=== PATIENT | female | born 1950 | race Caucasian/White ===

== ENCOUNTER 2016-04-03 17:46 | Inpatient (IN) | payer OTHER ==
[~2016-04-03] VITALS: Ht 152.4 cm; Wt 46.2 kg
[~2016-04-03 17:46] MED LIST: BISAC-EVAC10 MG RC; BONIVA150 MG PO; CALCIUM + D 601 EACH PO; CALCIUM 600 +1 EAC3 PO; CALMOSEPTINE O120 GM TP; CARBAMAZEPINE100 MG PO; CARBAMAZEPINE200 MG PO; COLACE10 MG/ML PO; COLACE100 MG PO; DAILY MULTIVIT1 EAC1 PO; DAILY VITAMIN1 EAC2 PO; ENSURE113 GM PO; FOSAMAX70 MG PO; K-DUR20 MEQ PO; LEVOFLOXACIN500 MG PO; MIRALAX17 GM PO; NITROFURAN25 MG/5 ML PO; REGLAN10 MG/10 M PO; SENNA8.6 M1 PO; SENNA8.6 MG PO; TEGRETOL100 MG PO; TEGRETOL200 MG PO; TYLENOL REGULA325 MG PO; Tegretol PO
[2016-04-03 19:27] LABS: CHLORIDE 114 mEq/L (99-109); POTASSIUM 3.8 mEq/L (3.7-5.4)
[2016-04-03 19:29] LABS: GLUCOSE 126 mg/dL (70-99)
[2016-04-03 19:31] LABS: ANION GAP 13 MEQ/L (2-14); TOTAL BILIRUBIN 0.6 mg/dL (0.0-1.0)
[2016-04-03 19:33] LABS: ALKALINE PHOSPHATASE 80 IU/L (3-129); GFR ESTIMATE (CALCULATED) 7 mL/min/
[2016-04-03 19:34] LABS: UREA NITROGEN (BUN) 92 mg/dL (9-23)
[2016-04-03 19:35] LABS: SODIUM 165 mEq/L (136-147)
[2016-04-03 19:39] LABS: MCH 33.7 PG (29.0-34.0); MCHC 31.2 G/DL (30.0-36.0); MCV 107.9 FL (83-99); MEAN PLAT.VOLUME 12.1 uM^3 (9.5-12.4); RBC DIS.WIDTH-CV 13.6 % (11.8-14.6); RBC DIS.WIDTH-SD 52.5 % (39-53); WHITE BLOOD COUNT 10.4 K/uL (4.1-10.2)
[2016-04-03 19:40] LABS: PLATELET COUNT 244 K/uL (156-360)
[2016-04-03 20:21] LABS: TROP-I INTERPRETATION NEGATIVE; TROPONIN-I 0.01 ng/mL (0.0-0.30)
[2016-04-03 20:55] LABS: BILIRUBIN SMALL; COLOR DK YELLOW ((YELLOW)); GLUCOSE (STRIP) NEGATIVE; KETONES NEGATIVE; LEUKOCYTES TRACE; NITRITE NEGATIVE; PH, URINE 5 (5-8); PROTEIN (STRIP) TRACE; SPECIFIC GRAVITY 1.015 (1.000-1.030); UROBILINOGEN 0.2 MG/DL (0.2-1.0)
[2016-04-03 20:56] LABS: ADD MIUA? YES; BLOOD LARGE
[2016-04-03 21:18] LABS: EPITHELIAL CELLS 4+; MUCUS NONE SEEN; RED BLOOD CELLS 0-5 /HPF (0-5); WHITE BLOOD CELLS 0-5 /HPF (0-5)
[2016-04-03 21:19] LABS: BACTERIA 2+; CASTS NONE SEEN /LPF; CRYSTALS NONE SEEN; UCUL ADDED? NO
[2016-04-04] VITALS (7 sets, daily range): BP systolic 99–130; BP diastolic 55–75
[2016-04-04 00:21] LABS: MAGNESIUM 4.6 mg/dL (1.3-2.7)
[2016-04-04 00:28] LABS: CREATINE KINASE 19 IU/L (1-294)
[2016-04-04 03:24] LABS: CHLORIDE 123 mEq/L (99-109)
[2016-04-04 03:25] LABS: POTASSIUM 3.4 mEq/L (3.7-5.4)
[2016-04-04 03:26] LABS: GLUCOSE 105 mg/dL (70-99); SODIUM 165 mEq/L (136-147)
[2016-04-04 03:28] LABS: ANION GAP 13 MEQ/L (2-14)
[2016-04-04 03:30] LABS: GFR ESTIMATE (CALCULATED) 9 mL/min/
[2016-04-04 03:31] LABS: UREA NITROGEN (BUN) 82 mg/dL (9-23)
[2016-04-04 05:34] LABS: URINE TOTAL PROTEIN 39 MG/DL (0-10)
[2016-04-04 06:28] LABS: HEMATOCRIT 33.8 % (36.0-46.0); MCH 32.4 PG (29.0-34.0); MCHC 30.5 G/DL (30.0-36.0); MCV 106.3 FL (83-99); MEAN PLAT.VOLUME 12.4 uM^3 (9.5-12.4); RBC DIS.WIDTH-CV 13.7 % (11.8-14.6); RBC DIS.WIDTH-SD 53.7 % (39-53); RED BLOOD COUNT 3.18 M/uL (3.80-5.20); WHITE BLOOD COUNT 8.7 K/uL (4.1-10.2)
[2016-04-04 06:36] LABS: PLATELET COUNT 169 K/uL (156-360)
[2016-04-04 06:58] LABS: ANION GAP 6 MEQ/L (2-14); CHLORIDE 124 MEQ/L (99-109); GFR ESTIMATE (CALCULATED) 9 mL/min/; GLUCOSE 119 mg/dL (70-99); POTASSIUM 3.8 MEQ/L (3.7-5.4); SAMPLE HEMOLYSIS CHECK 1; SAMPLE ICTERIC CHECK 0; SAMPLE LIPEMIA CHECK 0; UREA NITROGEN (BUN) 74 mg/dL (9-23)
[2016-04-04 07:05] LABS: SODIUM 161 MEQ/L (136-147)
[2016-04-04 07:58] LABS: INTACT PARATHYROID HORMONE 46 pg/mL (10-69)
[2016-04-04 17:12] LABS: ANION GAP 8 MEQ/L (2-14); CHLORIDE 116 MEQ/L (99-109); GFR ESTIMATE (CALCULATED) 9 mL/min/; GLUCOSE 131 mg/dL (70-99); POTASSIUM 3.3 MEQ/L (3.7-5.4); SAMPLE HEMOLYSIS CHECK 0; SAMPLE ICTERIC CHECK 0; SAMPLE LIPEMIA CHECK 0; SODIUM 156 MEQ/L (136-147); UREA NITROGEN (BUN) 71 mg/dL (9-23)
[2016-04-05 00:47] LABS: CHLORIDE 112 mEq/L (99-109); POTASSIUM 2.9 mEq/L (3.7-5.4); SODIUM 153 mEq/L (136-147)
[2016-04-05 00:49] LABS: GLUCOSE 136 mg/dL (70-99)
[2016-04-05 00:50] LABS: ANION GAP 10 MEQ/L (2-14)
[2016-04-05 00:53] LABS: GFR ESTIMATE (CALCULATED) 9 mL/min/
[2016-04-05 00:54] LABS: UREA NITROGEN (BUN) 73 mg/dL (9-23)
[2016-04-05 02:37] VITALS: BP 110/78
[2016-04-05 05:50] VITALS: BP 98/56
[2016-04-05 05:54] LABS: EOSINOPHIL (%) 5.1 % (0-5); EOSINOPHIL COUNT 0.4 K/uL (0-0.3); IMMATURE GRANULOCYTE COUNT 0.1 K/uL; LYMPHOCYTE COUNT 1.9 K/uL (1.0-2.8); MCHC 31.9 G/DL (30.0-36.0); MCV 103.6 FL (83-99); MEAN PLAT.VOLUME 12.5 uM^3 (9.5-12.4); MONOCYTE (%) 6.2 % (3-12); MONOCYTE COUNT 0.5 K/uL (0-0.8); NEUTROPHIL (%) 64.2 % (45-76); NEUTROPHIL COUNT 5.2 K/uL (1.8-6.4); PLATELET COUNT 200 K/uL (156-360); RBC DIS.WIDTH-CV 13.1 % (11.8-14.6); RBC DIS.WIDTH-SD 49.3 % (39-53); RED BLOOD COUNT 3.09 M/uL (3.80-5.20)
[2016-04-05 06:24] LABS: ALKALINE PHOSPHATASE 53 IU/L (3-129); ANION GAP 10 MEQ/L (2-14); CHLORIDE 110 MEQ/L (99-109); GFR ESTIMATE (CALCULATED) 10 mL/min/; GLUCOSE 128 mg/dL (70-99); POTASSIUM 2.9 MEQ/L (3.7-5.4); SAMPLE HEMOLYSIS CHECK 0; SAMPLE ICTERIC CHECK 0; SAMPLE LIPEMIA CHECK 0; SODIUM 151 MEQ/L (136-147); TOTAL BILIRUBIN 0.4 MG/DL (0.0-1.0); UREA NITROGEN (BUN) 63 mg/dL (9-23)
[2016-04-05 08:21] VITALS: BP 136/66
[2016-04-05 11:47] VITALS: BP 130/82
[2016-04-05 16:00] VITALS: BP 160/66
[2016-04-05 17:15] LABS: ANION GAP 12 MEQ/L (2-14); CHLORIDE 109 MEQ/L (99-109); GFR ESTIMATE (CALCULATED) 10 mL/min/; GLUCOSE 100 mg/dL (70-99); POTASSIUM 3.2 MEQ/L (3.7-5.4); SAMPLE HEMOLYSIS CHECK 0; SAMPLE ICTERIC CHECK 0; SAMPLE LIPEMIA CHECK 0; SODIUM 149 MEQ/L (136-147); UREA NITROGEN (BUN) 61 mg/dL (9-23)
[2016-04-05 19:16] VITALS: BP 120/58
[2016-04-06 00:08] VITALS: BP 120/60
[2016-04-06 01:05] LABS: CHLORIDE 111 mEq/L (99-109); SODIUM 147 mEq/L (136-147)
[2016-04-06 01:07] LABS: GLUCOSE 116 mg/dL (70-99)
[2016-04-06 01:08] LABS: ANION GAP 12 MEQ/L (2-14); POTASSIUM 4.4 mEq/L (3.7-5.4)
[2016-04-06 01:11] LABS: GFR ESTIMATE (CALCULATED) 11 mL/min/; UREA NITROGEN (BUN) 59 mg/dL (9-23)
[2016-04-06 04:00] VITALS: BP 113/55
[2016-04-06 08:02] LABS: EOSINOPHIL (%) 6.7 % (0-5); EOSINOPHIL COUNT 0.4 K/uL (0-0.3); HEMATOCRIT 32.2 % (36.0-46.0); IMMATURE GRANULOCYTE (%) 0.9 % (0.0-0.7); IMMATURE GRANULOCYTE COUNT 0.1 K/uL; LYMPHOCYTE COUNT 1.5 K/uL (1.0-2.8); MCH 32.7 PG (29.0-34.0); MCHC 32.6 G/DL (30.0-36.0); MCV 100.3 FL (83-99); MEAN PLAT.VOLUME 12.4 uM^3 (9.5-12.4); MONOCYTE COUNT 0.5 K/uL (0-0.8); NEUTROPHIL COUNT 3.9 K/uL (1.8-6.4); PLATELET COUNT 190 K/uL (156-360); RBC DIS.WIDTH-CV 12.8 % (11.8-14.6); RBC DIS.WIDTH-SD 47.3 % (39-53); RED BLOOD COUNT 3.21 M/uL (3.80-5.20); WHITE BLOOD COUNT 6.4 K/uL (4.1-10.2)
[2016-04-06 08:34] VITALS: BP 120/72
[2016-04-06 08:49] LABS: ALKALINE PHOSPHATASE 56 IU/L (3-129); ANION GAP 9 MEQ/L (2-14); CHLORIDE 110 MEQ/L (99-109); GFR ESTIMATE (CALCULATED) 12 mL/min/; GLUCOSE 103 mg/dL (70-99); SAMPLE HEMOLYSIS CHECK 0; SAMPLE ICTERIC CHECK 0; SAMPLE LIPEMIA CHECK 0; SODIUM 146 MEQ/L (136-147); UREA NITROGEN (BUN) 52 mg/dL (9-23)
[2016-04-06 08:52] LABS: POTASSIUM 3.4 MEQ/L (3.7-5.4); TOTAL BILIRUBIN 0.3 MG/DL (0.0-1.0)
[2016-04-06 13:04] VITALS: BP 105/59
[2016-04-06 17:01] LABS: ANION GAP 10 MEQ/L (2-14); CHLORIDE 108 MEQ/L (99-109); GFR ESTIMATE (CALCULATED) 13 mL/min/; GLUCOSE 79 mg/dL (70-99); SAMPLE HEMOLYSIS CHECK 1; SAMPLE ICTERIC CHECK 0; SAMPLE LIPEMIA CHECK 0; SODIUM 143 MEQ/L (136-147); UREA NITROGEN (BUN) 50 mg/dL (9-23)
[2016-04-06 17:05] VITALS: BP 125/66
[2016-04-06 20:30] VITALS: BP 100/52
[2016-04-07 00:40] LABS: CHLORIDE 113 mEq/L (99-109); POTASSIUM 3.5 mEq/L (3.7-5.4); SODIUM 146 mEq/L (136-147)
[2016-04-07 00:42] LABS: GLUCOSE 86 mg/dL (70-99)
[2016-04-07 00:43] LABS: ANION GAP 12 MEQ/L (2-14)
[2016-04-07 00:45] LABS: GFR ESTIMATE (CALCULATED) 13 mL/min/
[2016-04-07 00:46] LABS: UREA NITROGEN (BUN) 46 mg/dL (9-23)
[2016-04-07 03:10] VITALS: BP 97/50
[2016-04-07 06:01] LABS: ANION GAP 11 MEQ/L (2-14); CHLORIDE 111 MEQ/L (99-109); GFR ESTIMATE (CALCULATED) 13 mL/min/; GLUCOSE 85 mg/dL (70-99); POTASSIUM 3.5 MEQ/L (3.7-5.4); SAMPLE HEMOLYSIS CHECK 0; SAMPLE ICTERIC CHECK 0; SAMPLE LIPEMIA CHECK 0; SODIUM 144 MEQ/L (136-147); UREA NITROGEN (BUN) 44 mg/dL (9-23)
[2016-04-07 07:24] VITALS: BP 122/63
[2016-04-07 16:05] VITALS: BP 133/69
[2016-04-07 16:27] LABS: ANION GAP 7 MEQ/L (2-14); CHLORIDE 112 MEQ/L (99-109); GFR ESTIMATE (CALCULATED) 15 mL/min/; GLUCOSE 79 mg/dL (70-99); POTASSIUM 3.1 MEQ/L (3.7-5.4); SAMPLE HEMOLYSIS CHECK 0; SAMPLE ICTERIC CHECK 0; SAMPLE LIPEMIA CHECK 0; SODIUM 145 MEQ/L (136-147); UREA NITROGEN (BUN) 40 mg/dL (9-23)
[2016-04-07 19:55] VITALS: BP 127/76
[2016-04-07 23:59] VITALS: BP 120/80
[2016-04-08 00:30] LABS: CHLORIDE 118 mEq/L (99-109); POTASSIUM 3.5 mEq/L (3.7-5.4); SODIUM 151 mEq/L (136-147)
[2016-04-08 00:32] LABS: GLUCOSE 82 mg/dL (70-99)
[2016-04-08 00:33] LABS: ANION GAP 12 MEQ/L (2-14)
[2016-04-08 00:36] LABS: GFR ESTIMATE (CALCULATED) 16 mL/min/
[2016-04-08 00:37] LABS: UREA NITROGEN (BUN) 35 mg/dL (9-23)
[2016-04-08 03:15] VITALS: BP 130/78
[2016-04-08 06:00] LABS: EOSINOPHIL (%) 5.1 % (0-5); EOSINOPHIL COUNT 0.3 K/uL (0-0.3); HEMATOCRIT 32.2 % (36.0-46.0); IMMATURE GRANULOCYTE COUNT 0.1 K/uL; LYMPHOCYTE COUNT 1.6 K/uL (1.0-2.8); MCH 32.5 PG (29.0-34.0); MCHC 32.6 G/DL (30.0-36.0); MCV 99.7 FL (83-99); MONOCYTE (%) 5.7 % (3-12); MONOCYTE COUNT 0.3 K/uL (0-0.8); NEUTROPHIL (%) 55.9 % (45-76); NEUTROPHIL COUNT 2.8 K/uL (1.8-6.4); RBC DIS.WIDTH-CV 12.9 % (11.8-14.6); RBC DIS.WIDTH-SD 46.7 % (39-53); RED BLOOD COUNT 3.23 M/uL (3.80-5.20); WHITE BLOOD COUNT 5.1 K/uL (4.1-10.2)
[2016-04-08 07:24] LABS: HEMATOLOGY COMMENT 1 SMEAR COMPATIBLE; MEAN PLAT.VOLUME 12.9 uM^3 (9.5-12.4); PLATELET COUNT 145 K/uL (156-360)
[2016-04-08 07:25] VITALS: BP 139/67
[2016-04-08 09:01] LABS: ANION GAP 11 MEQ/L (2-14); CHLORIDE 119 MEQ/L (99-109); GFR ESTIMATE (CALCULATED) 17 mL/min/; GLUCOSE 78 mg/dL (70-99); MAGNESIUM 2.1 mg/dl (1.3-2.7); POTASSIUM 3.5 MEQ/L (3.7-5.4); SAMPLE HEMOLYSIS CHECK 0; SAMPLE ICTERIC CHECK 0; SAMPLE LIPEMIA CHECK 0; SODIUM 151 MEQ/L (136-147); UREA NITROGEN (BUN) 33 mg/dL (9-23)
[2016-04-08 11:43] VITALS: BP 139/65
[2016-04-08 16:03] VITALS: BP 110/72
[2016-04-08 16:26] LABS: ANION GAP 8 MEQ/L (2-14); CHLORIDE 119 MEQ/L (99-109); GFR ESTIMATE (CALCULATED) 19 mL/min/; POTASSIUM 3.7 MEQ/L (3.7-5.4); SAMPLE HEMOLYSIS CHECK 0; SAMPLE ICTERIC CHECK 0; SAMPLE LIPEMIA CHECK 0; SODIUM 149 MEQ/L (136-147); UREA NITROGEN (BUN) 29 mg/dL (9-23)
[2016-04-08 16:30] LABS: GLUCOSE 103 mg/dL (70-99)
[2016-04-08 20:33] VITALS: BP 117/59
[2016-04-08 23:54] VITALS: BP 112/60
[2016-04-09 01:15] LABS: CHLORIDE 117 mEq/L (99-109); POTASSIUM 3.4 mEq/L (3.7-5.4); SODIUM 147 mEq/L (136-147)
[2016-04-09 01:16] LABS: GLUCOSE 131 mg/dL (70-99)
[2016-04-09 01:18] LABS: ANION GAP 12 MEQ/L (2-14)
[2016-04-09 01:20] LABS: GFR ESTIMATE (CALCULATED) 20 mL/min/
[2016-04-09 01:21] LABS: UREA NITROGEN (BUN) 25 mg/dL (9-23)
[2016-04-09 03:58] VITALS: BP 94/51
[2016-04-09 06:13] LABS: EOSINOPHIL (%) 5.4 % (0-5); EOSINOPHIL COUNT 0.3 K/uL (0-0.3); HEMATOCRIT 28.3 % (36.0-46.0); IMMATURE GRANULOCYTE (%) 0.7 % (0.0-0.7); MCH 32.1 PG (29.0-34.0); MCHC 32.5 G/DL (30.0-36.0); MCV 98.6 FL (83-99); MONOCYTE (%) 9.2 % (3-12); MONOCYTE COUNT 0.5 K/uL (0-0.8); NEUTROPHIL COUNT 2.7 K/uL (1.8-6.4); RED BLOOD COUNT 2.87 M/uL (3.80-5.20); WHITE BLOOD COUNT 5.6 K/uL (4.1-10.2)
[2016-04-09 06:44] LABS: ANION GAP 6 MEQ/L (2-14); CHLORIDE 114 MEQ/L (99-109); GFR ESTIMATE (CALCULATED) 20 mL/min/; GLUCOSE 121 mg/dL (70-99); SAMPLE HEMOLYSIS CHECK 0; SAMPLE ICTERIC CHECK 0; SAMPLE LIPEMIA CHECK 0; SODIUM 144 MEQ/L (136-147); UREA NITROGEN (BUN) 23 mg/dL (9-23)
[2016-04-09 06:48] LABS: MAGNESIUM 1.7 mg/dl (1.3-2.7)
[2016-04-09 07:26] VITALS: BP 101/59
[2016-04-09 07:53] LABS: MEAN PLAT.VOLUME 12.5 uM^3 (9.5-12.4)
[2016-04-09 07:58] LABS: PLATELET COUNT 200 K/uL (156-360)
[2016-04-09 10:59] LABS: ANION GAP 11 MEQ/L (2-14); CHLORIDE 114 MEQ/L (99-109); GFR ESTIMATE (CALCULATED) 24 mL/min/; GLUCOSE 104 mg/dL (70-99); SAMPLE HEMOLYSIS CHECK 0; SAMPLE ICTERIC CHECK 0; SAMPLE LIPEMIA CHECK 0; SODIUM 145 MEQ/L (136-147); UREA NITROGEN (BUN) 22 mg/dL (9-23)
[2016-04-09 16:25] VITALS: BP 115/66
[2016-04-09 16:30] LABS: ANION GAP 9 MEQ/L (2-14); CHLORIDE 114 MEQ/L (99-109); GFR ESTIMATE (CALCULATED) 24 mL/min/; GLUCOSE 93 mg/dL (70-99); SAMPLE HEMOLYSIS CHECK 0; SAMPLE ICTERIC CHECK 0; SAMPLE LIPEMIA CHECK 0; SODIUM 143 MEQ/L (136-147); UREA NITROGEN (BUN) 19 mg/dL (9-23)
[2016-04-09 16:31] LABS: POTASSIUM 3.9 MEQ/L (3.7-5.4)
[2016-04-09 20:00] VITALS: BP 140/60
[2016-04-10] VITALS: BP 127/69
[2016-04-10 00:59] LABS: CHLORIDE 114 mEq/L (99-109); POTASSIUM 3.3 mEq/L (3.7-5.4); SODIUM 142 mEq/L (136-147)
[2016-04-10 01:01] LABS: GLUCOSE 90 mg/dL (70-99)
[2016-04-10 01:02] LABS: ANION GAP 7 MEQ/L (2-14)
[2016-04-10 01:05] LABS: GFR ESTIMATE (CALCULATED) 24 mL/min/
[2016-04-10 01:06] LABS: UREA NITROGEN (BUN) 17 mg/dL (9-23)
[2016-04-10 04:00] VITALS: BP 105/72
[2016-04-10 04:35] LABS: EOSINOPHIL (%) 5.8 % (0-5); EOSINOPHIL COUNT 0.4 K/uL (0-0.3); HEMATOCRIT 32.6 % (36.0-46.0); IMMATURE GRANULOCYTE (%) 0.7 % (0.0-0.7); IMMATURE GRANULOCYTE COUNT 0.4 K/uL; MCH 32.8 PG (29.0-34.0); MCHC 33.1 G/DL (30.0-36.0); MCV 99.1 FL (83-99); MEAN PLAT.VOLUME 12.2 uM^3 (9.5-12.4); MONOCYTE (%) 8.8 % (3-12); MONOCYTE COUNT 0.5 K/uL (0-0.8); NEUTROPHIL (%) 50.9 % (45-76); NEUTROPHIL COUNT 3.1 K/uL (1.8-6.4); PLATELET COUNT 217 K/uL (156-360); RBC DIS.WIDTH-CV 12.6 % (11.8-14.6); RBC DIS.WIDTH-SD 44.1 % (39-53); RED BLOOD COUNT 3.29 M/uL (3.80-5.20)
[2016-04-10 04:44] LABS: CHLORIDE 115 mEq/L (99-109); POTASSIUM 3.1 mEq/L (3.7-5.4); SODIUM 144 mEq/L (136-147)
[2016-04-10 04:46] LABS: GLUCOSE 89 mg/dL (70-99)
[2016-04-10 04:47] LABS: ANION GAP 9 MEQ/L (2-14)
[2016-04-10 04:49] LABS: GFR ESTIMATE (CALCULATED) 24 mL/min/
[2016-04-10 04:50] LABS: UREA NITROGEN (BUN) 16 mg/dL (9-23)
[2016-04-10 07:46] VITALS: BP 131/62
[2016-04-10 12:25] VITALS: BP 123/54
[2016-04-10 17:05] LABS: ANION GAP 8 MEQ/L (2-14); CHLORIDE 116 MEQ/L (99-109); GFR ESTIMATE (CALCULATED) 30 mL/min/; GLUCOSE 99 mg/dL (70-99); POTASSIUM 4.9 MEQ/L (3.7-5.4); SAMPLE HEMOLYSIS CHECK 2; SAMPLE ICTERIC CHECK 0; SAMPLE LIPEMIA CHECK 0; SODIUM 143 MEQ/L (136-147); UREA NITROGEN (BUN) 13 mg/dL (9-23)
[2016-04-10 17:17] VITALS: BP 123/91
[2016-04-10 20:06] VITALS: BP 128/86
[2016-04-11 00:13] VITALS: BP 105/63
[2016-04-11 00:39] LABS: CHLORIDE 115 mEq/L (99-109); SODIUM 144 mEq/L (136-147)
[2016-04-11 00:41] LABS: GLUCOSE 89 mg/dL (70-99)
[2016-04-11 00:42] LABS: ANION GAP 8 MEQ/L (2-14)
[2016-04-11 00:44] LABS: GFR ESTIMATE (CALCULATED) 25 mL/min/
[2016-04-11 00:45] LABS: UREA NITROGEN (BUN) 12 mg/dL (9-23)
[2016-04-11 00:48] LABS: POTASSIUM 3.5 mEq/L (3.7-5.4)
[2016-04-11 04:47] VITALS: BP 112/63
[2016-04-11 06:12] LABS: ANION GAP 7 MEQ/L (2-14); CHLORIDE 114 MEQ/L (99-109); GFR ESTIMATE (CALCULATED) 28 mL/min/; GLUCOSE 87 mg/dL (70-99); MAGNESIUM 1.7 mg/dl (1.3-2.7); POTASSIUM 3.3 MEQ/L (3.7-5.4); SAMPLE HEMOLYSIS CHECK 0; SAMPLE ICTERIC CHECK 0; SAMPLE LIPEMIA CHECK 0; SODIUM 145 MEQ/L (136-147); UREA NITROGEN (BUN) 11 mg/dL (9-23)
[2016-04-11 08:17] VITALS: BP 120/66
[2016-04-11 11:45] VITALS: BP 115/70
[2016-04-11 16:14] VITALS: BP 130/69
[2016-04-11 16:51] LABS: ANION GAP 9 MEQ/L (2-14); CHLORIDE 113 MEQ/L (99-109); GFR ESTIMATE (CALCULATED) 28 mL/min/; GLUCOSE 86 mg/dL (70-99); POTASSIUM 3.7 MEQ/L (3.7-5.4); SAMPLE HEMOLYSIS CHECK 0; SAMPLE ICTERIC CHECK 0; SAMPLE LIPEMIA CHECK 0; SODIUM 143 MEQ/L (136-147); UREA NITROGEN (BUN) 10 mg/dL (9-23)
[2016-04-11 20:03] VITALS: BP 105/71
[2016-04-12] VITALS (7 sets, daily range): BP systolic 113–166; BP diastolic 58–80
[2016-04-12 01:17] LABS: CHLORIDE 118 mEq/L (99-109); POTASSIUM 3.6 mEq/L (3.7-5.4); SODIUM 145 mEq/L (136-147)
[2016-04-12 01:19] LABS: GLUCOSE 98 mg/dL (70-99)
[2016-04-12 01:21] LABS: ANION GAP 9 MEQ/L (2-14)
[2016-04-12 01:23] LABS: GFR ESTIMATE (CALCULATED) 28 mL/min/
[2016-04-12 01:24] LABS: UREA NITROGEN (BUN) 8 mg/dL (9-23)
[2016-04-12 09:07] LABS: ANION GAP 11 MEQ/L (2-14); CHLORIDE 118 MEQ/L (99-109); GFR ESTIMATE (CALCULATED) 32 mL/min/; GLUCOSE 87 mg/dL (70-99); POTASSIUM 3.5 MEQ/L (3.7-5.4); SAMPLE HEMOLYSIS CHECK 0; SAMPLE ICTERIC CHECK 0; SAMPLE LIPEMIA CHECK 0; SODIUM 148 MEQ/L (136-147); UREA NITROGEN (BUN) 8 mg/dL (9-23)
[2016-04-12 16:49] LABS: ANION GAP 10 MEQ/L (2-14); CHLORIDE 116 MEQ/L (99-109); GFR ESTIMATE (CALCULATED) 34 mL/min/; GLUCOSE 104 mg/dL (70-99); POTASSIUM 2.8 MEQ/L (3.7-5.4); SAMPLE HEMOLYSIS CHECK 0; SAMPLE ICTERIC CHECK 0; SAMPLE LIPEMIA CHECK 0; SODIUM 147 MEQ/L (136-147); UREA NITROGEN (BUN) 7 mg/dL (9-23)
[2016-04-13 00:57] LABS: CHLORIDE 115 mEq/L (99-109); POTASSIUM 3.1 mEq/L (3.7-5.4); SODIUM 146 mEq/L (136-147)
[2016-04-13 00:59] LABS: GLUCOSE 114 mg/dL (70-99)
[2016-04-13 01:00] LABS: ANION GAP 8 MEQ/L (2-14)
[2016-04-13 01:02] LABS: GFR ESTIMATE (CALCULATED) 37 mL/min/
[2016-04-13 01:03] LABS: UREA NITROGEN (BUN) 6 mg/dL (9-23)
[2016-04-13 03:50] VITALS: BP 127/66
[2016-04-13 06:31] LABS: ANION GAP 11 MEQ/L (2-14); CHLORIDE 111 MEQ/L (99-109); GFR ESTIMATE (CALCULATED) 37 mL/min/; GLUCOSE 124 mg/dL (70-99); MAGNESIUM 1.7 mg/dl (1.3-2.7); POTASSIUM 3.7 MEQ/L (3.7-5.4); SAMPLE HEMOLYSIS CHECK 1; SAMPLE ICTERIC CHECK 0; SAMPLE LIPEMIA CHECK 0; SODIUM 140 MEQ/L (136-147); UREA NITROGEN (BUN) 6 mg/dL (9-23)
[2016-04-13 07:22] VITALS: BP 105/59
[2016-04-13 09:45] LABS: ANION GAP 10 MEQ/L (2-14); CHLORIDE 109 MEQ/L (99-109); GFR ESTIMATE (CALCULATED) 40 mL/min/; GLUCOSE 93 mg/dL (70-99); POTASSIUM 3.2 MEQ/L (3.7-5.4); SAMPLE HEMOLYSIS CHECK 0; SAMPLE ICTERIC CHECK 0; SAMPLE LIPEMIA CHECK 0; SODIUM 143 MEQ/L (136-147); UREA NITROGEN (BUN) 6 mg/dL (9-23)
[2016-04-13] MEDS ORDERED: K-SOL20 MEQ/15 PO (10:21)
[2016-04-13 11:50] VITALS: BP 120/75
[2016-04-13 16:19] LABS: ANION GAP 11 MEQ/L (2-14); CHLORIDE 108 MEQ/L (99-109); GFR ESTIMATE (CALCULATED) 44 mL/min/; GLUCOSE 101 mg/dL (70-99); POTASSIUM 3.4 MEQ/L (3.7-5.4); SAMPLE HEMOLYSIS CHECK 1; SAMPLE ICTERIC CHECK 0; SAMPLE LIPEMIA CHECK 0; SODIUM 138 MEQ/L (136-147); UREA NITROGEN (BUN) 5 mg/dL (9-23)
== END 2016-04-13 16:22 | disposition home health service (06) | DRG 682 ==
LOC: EME 17:46 → 4EAST 23:37 → EDOF 23:37 → 3EAST 23:37 → 4EAST 04-04 00:38 → 3EAST 04-04 21:57
PROVIDERS: Emergency Medicine; Hospitalist; Internal Medicine Nephrology; Nurse Practitioner Adult Health; Pediatrics; Physician Assistant
DX: N17.9 Acute kidney failure, unspecified (principal); G80.0 Spastic quadriplegic cerebral palsy; N39.0 Urinary tract infection, site not specified; K31.1 Adult hypertrophic pyloric stenosis; Z68.1 Body mass index [BMI] 19.9 or less, adult; E87.0 Hyperosmolality and hypernatremia; E86.0 Dehydration; E83.52 Hypercalcemia; E87.6 Hypokalemia; N12 Tubulo-interstitial nephritis, not specified as acute or chronic; K44.9 Diaphragmatic hernia without obstruction or gangrene; G40.909 Epilepsy, unspecified, not intractable, without status epilepticus; Z66 Do not resuscitate; M41.9 Scoliosis, unspecified; E83.39 Other disorders of phosphorus metabolism; N18.3 Chronic kidney disease, stage 3 (moderate); F79 Unspecified intellectual disabilities; Z85.038 Personal history of other malignant neoplasm of large intestine
CPT/HCPCS: 71010; 74176; 80048; 80048 91; 80053; 80069; 81003; 82436; 82550; 83735; 83935; 83970; 84100; 84133; 84300; 84443; 84484; 85025; 85027; 86335; 92610 GN; 93005; 99281; 99285; J1644; J1953; J3480; J7030; J7040; J7050; J7070

== ENCOUNTER 2016-12-02 21:10 | Emergency (ER) | payer OTHER ==
[~2016-12-02] VITALS: Ht 139.7 cm; Wt 87.4 kg
[~2016-12-02 21:10] MED LIST changes: +K-SOL20 MEQ/15 PO
[2016-12-02 22:12] LABS: MCH 31.4 PG (29.0-34.0); MCHC 32.8 G/DL (30.0-36.0); MCV 95.6 FL (83-99); MEAN PLAT.VOLUME 10.5 uM^3 (9.5-12.4); PLATELET COUNT 214 K/uL (156-360); RBC DIS.WIDTH-CV 12.7 % (11.8-14.6); RBC DIS.WIDTH-SD 44.5 % (39-53); RED BLOOD COUNT 4.08 M/uL (3.80-5.20); WHITE BLOOD COUNT 9.2 K/uL (4.1-10.2)
[2016-12-02 22:23] LABS: CHLORIDE 107 mEq/L (99-109); POTASSIUM 3.2 mEq/L (3.7-5.4); SODIUM 147 mEq/L (136-147)
[2016-12-02 22:26] LABS: GLUCOSE 126 mg/dL (70-99)
[2016-12-02 22:27] LABS: ANION GAP 9 MEQ/L (2-14)
[2016-12-02 22:28] LABS: TOTAL BILIRUBIN 0.3 mg/dL (0.0-1.0)
[2016-12-02 22:29] LABS: ALKALINE PHOSPHATASE 91 IU/L (3-129); GFR ESTIMATE (CALCULATED) 53 mL/min/
[2016-12-02 22:30] LABS: UREA NITROGEN (BUN) 17 mg/dL (9-23)
[2016-12-02 23:00] LABS: ADD MIUA? YES; BILIRUBIN NEGATIVE; BLOOD SMALL; COLOR AMBER ((YELLOW)); GLUCOSE (STRIP) NEGATIVE; KETONES NEGATIVE; LEUKOCYTES SMALL; NITRITE NEGATIVE; PROTEIN (STRIP) 30; SPECIFIC GRAVITY 1.027 (1.000-1.030); UROBILINOGEN 0.2 MG/DL (0.2-1.0)
[2016-12-03 00:11] LABS: BACTERIA 2+ /HPF; CRYSTALS PRESENT; EPITHELIAL CELLS 3+ /HPF; MUCUS 2+ /LPF; UCUL ADDED? YES
[2016-12-03 00:12] LABS: AMORPHOUS URATES CRYSTALS 2+
[2016-12-03] MEDS ORDERED: BACTRIM,SEPT1 TABLET PO (00:17)
[2016-12-03 00:38] VITALS: BP 108/68
== END 2016-12-03 00:48 | disposition home or self-care (01) ==
LOC: EME 21:10
DX: N39.0 Urinary tract infection, site not specified (principal); Z87.440 Personal history of urinary (tract) infections; F79 Unspecified intellectual disabilities; Z85.038 Personal history of other malignant neoplasm of large intestine; M81.0 Age-related osteoporosis without current pathological fracture; Z98.890 Other specified postprocedural states
CPT/HCPCS: 80053; 81003; 85027; 87077; 87086; 87186; 99281; 99284

== ENCOUNTER 2016-12-03 13:12 | Emergency (ER) | payer OTHER ==
[~2016-12-03] VITALS: Ht 139.7 cm; Wt 39.0 kg
[~2016-12-03 13:12] MED LIST changes: +BACTRIM,SEPT1 TABLET PO
[2016-12-03 15:47] LABS: BASOPHIL COUNT 0.1 K/uL (0-0.1); EOSINOPHIL (%) 2.6 % (0-5); EOSINOPHIL COUNT 0.2 K/uL (0-0.3); HEMATOCRIT 37.7 % (36.0-46.0); IMMATURE GRANULOCYTE (%) 0.3 % (0.0-0.7); INSTRUMENT ABS NEUTROPHIL CT 3.2 K/uL; MCH 31.5 PG (29.0-34.0); MCHC 32.6 G/DL (30.0-36.0); MCV 96.7 FL (83-99); MEAN PLAT.VOLUME 10.4 uM^3 (9.5-12.4); MONOCYTE (%) 11.3 % (3-12); MONOCYTE COUNT 0.7 K/uL (0-0.8); NEUTROPHIL (%) 52.6 % (45-76); NEUTROPHIL COUNT 3.2 K/uL (1.8-6.4); PLATELET COUNT 204 K/uL (156-360); RBC DIS.WIDTH-CV 12.8 % (11.8-14.6); RBC DIS.WIDTH-SD 45.5 % (39-53); WHITE BLOOD COUNT 6.1 K/uL (4.1-10.2)
[2016-12-03 15:59] LABS: CHLORIDE 108 mEq/L (99-109); POTASSIUM 3.2 mEq/L (3.7-5.4); SODIUM 147 mEq/L (136-147)
[2016-12-03 16:01] LABS: GLUCOSE 95 mg/dL (70-99)
[2016-12-03 16:02] LABS: ANION GAP 11 MEQ/L (2-14)
[2016-12-03 16:04] LABS: ALKALINE PHOSPHATASE 85 IU/L (3-129)
[2016-12-03 16:05] LABS: GFR ESTIMATE (CALCULATED) 59 mL/min/
[2016-12-03 16:06] LABS: UREA NITROGEN (BUN) 17 mg/dL (9-23)
[2016-12-03 16:07] LABS: TOTAL BILIRUBIN 0.2 mg/dL (0.0-1.0)
[2016-12-03 16:08] LABS: LIPASE 17 U/L (1.0-51.0)
[2016-12-03 17:13] VITALS: BP 91/50
== END 2016-12-03 17:20 | disposition home or self-care (01) ==
LOC: EME 13:12
PROVIDERS: Physician Assistant
DX: N39.0 Urinary tract infection, site not specified (principal); F79 Unspecified intellectual disabilities; K08.89 Other specified disorders of teeth and supporting structures; Z85.038 Personal history of other malignant neoplasm of large intestine
CPT/HCPCS: 71010; 80053; 81003; 83605; 83690; 85025; 87040; 99281; 99284

== ENCOUNTER 2016-12-15 06:59 | Observation (INO) | payer OTHER ==
[~2016-12-15] VITALS: Ht 121.9 cm; Wt 38.6 kg
[2016-12-15 07:34] LABS: HEMATOCRIT 36.3 % (36.0-46.0); MCH 31.3 PG (29.0-34.0); MCHC 31.4 G/DL (30.0-36.0); MCV 99.7 FL (83-99); MEAN PLAT.VOLUME 9.3 uM^3 (9.5-12.4); PLATELET COUNT 263 K/uL (156-360); RBC DIS.WIDTH-CV 13.1 % (11.8-14.6); RBC DIS.WIDTH-SD 47.6 % (39-53); RED BLOOD COUNT 3.64 M/uL (3.80-5.20); WHITE BLOOD COUNT 5.5 K/uL (4.1-10.2)
[2016-12-15 08:05] LABS: ANION GAP 7 MEQ/L (2-14); CHLORIDE 115 MEQ/L (99-109); SAMPLE HEMOLYSIS CHECK 0; SAMPLE ICTERIC CHECK 0; SAMPLE LIPEMIA CHECK 0; SODIUM 152 MEQ/L (136-147)
[2016-12-15 08:11] LABS: GFR ESTIMATE (CALCULATED) 59 mL/min/; GLUCOSE 87 mg/dL (70-99); UREA NITROGEN (BUN) 28 mg/dL (9-23)
[2016-12-15 08:15] LABS: TROP-I INTERPRETATION NEGATIVE; TROPONIN-I 0.01 ng/mL (0.0-0.30)
[2016-12-15] MEDS ORDERED: DULCOLAX10 MG PR (10:57)
[2016-12-15 13:01] VITALS: BP 104/56
[2016-12-15 18:26] LABS: ANION GAP 7 MEQ/L (2-14); CHLORIDE 113 MEQ/L (99-109); GFR ESTIMATE (CALCULATED) > 59 mL/min/; GLUCOSE 89 mg/dL (70-99); POTASSIUM 3.9 MEQ/L (3.7-5.4); SAMPLE HEMOLYSIS CHECK 0; SAMPLE ICTERIC CHECK 0; SAMPLE LIPEMIA CHECK 0; SODIUM 148 MEQ/L (136-147); UREA NITROGEN (BUN) 22 mg/dL (9-23)
[2016-12-15 21:34] VITALS: BP 109/53
[2016-12-16 00:38] VITALS: BP 94/52
[2016-12-16 03:51] VITALS: BP 110/63
[2016-12-16 06:12] LABS: ANION GAP 5 MEQ/L (2-14); CHLORIDE 111 MEQ/L (99-109); GFR ESTIMATE (CALCULATED) 59 mL/min/; GLUCOSE 86 mg/dL (70-99); POTASSIUM 3.8 MEQ/L (3.7-5.4); SAMPLE HEMOLYSIS CHECK 0; SAMPLE ICTERIC CHECK 0; SAMPLE LIPEMIA CHECK 0; SODIUM 144 MEQ/L (136-147); UREA NITROGEN (BUN) 21 mg/dL (9-23)
[2016-12-16 09:24] VITALS: BP 116/58
[2016-12-16 11:07] VITALS: BP 109/55
[2016-12-16 16:35] VITALS: BP 114/61
== END 2016-12-16 16:43 | disposition home or self-care (01) ==
LOC: EME 06:59 → 5WEST 10:18 → EDOF 10:18 → ENRESERV 10:19 → EDOF 10:28 → ENRESERV 10:58 → 5WEST 12:49 → ENPENDDIS 12-16 → 5WEST 12-16 16:43
PROVIDERS: Emergency Medicine; Hospitalist
DX: E86.0 Dehydration (principal); E87.0 Hyperosmolality and hypernatremia; D53.9 Nutritional anemia, unspecified; R91.8 Other nonspecific abnormal finding of lung field; G80.0 Spastic quadriplegic cerebral palsy; F79 Unspecified intellectual disabilities; M40.209 Unspecified kyphosis, site unspecified; M62.49 Contracture of muscle, multiple sites; Z74.01 Bed confinement status; Z85.038 Personal history of other malignant neoplasm of large intestine; Z86.19 Personal history of other infectious and parasitic diseases; H54.62 Unqualified visual loss, left eye, normal vision right eye; Z66 Do not resuscitate
CPT/HCPCS: 71010; 71020; 80048; 80048 91; 83605; 84484; 85027; 87040; 87077; 87186; 87801; 92610 GN; 93005; 99202; 99281; 99285; G0378; J0456; J0696; J1650; J7050

== ENCOUNTER 2017-01-24 12:48 | Emergency (ER) | payer OTHER ==
[~2017-01-24] VITALS: Ht 139.7 cm; Wt 38.2 kg
[~2017-01-24 12:48] MED LIST changes: +DULCOLAX10 MG PR
[2017-01-24 18:29] VITALS: BP 96/58
== END 2017-01-24 18:30 | disposition home or self-care (01) ==
LOC: EME 12:48
DX: R41.0 Disorientation, unspecified (principal); H91.90 Unspecified hearing loss, unspecified ear; H54.7 Unspecified visual loss; G82.50 Quadriplegia, unspecified; Z85.038 Personal history of other malignant neoplasm of large intestine; Z66 Do not resuscitate
CPT/HCPCS: 99281; 99284

== ENCOUNTER → 2017-02-10 | Outpatient (CLI) | payer MEDICARE, OTHER | END | disposition home or self-care (01) | LOC: CDC 10:00 | DX: Z01.810 Encounter for preprocedural cardiovascular examination (principal) | CPT/HCPCS: 93000 ==